=== PATIENT | male | born 1970 | race African-American/Black ===

== ENCOUNTER 2017-06-06 18:31 | Emergency (ER) | payer MEDICARE, OTHER ==
[2017-06-06 19:14] LABS: ADD MAN DIFF? NO
[2017-06-06 19:15] LABS: BASO # 0.1 x10^3/uL (0.0-0.2); BASO % 0 % (0-3); EOS # 0.1 x10^3/uL (0.0-0.7); EOS % 1 % (0-3); HEMATOCRIT 40.4 % (39.0-53.0); HEMOGLOBIN 13.4 g/dL (13.0-17.5); LYMPH # 1.2 x10^3/uL (1.0-4.8); LYMPH % 9 % (24-48); MEAN CORPUSCULAR HEMOGLOBIN 26 pg (25-35); MEAN CORPUSCULAR HGB CONC 33 g/dL (31-37); MEAN CORPUSCULAR VOLUME 77 fL (79-100); MONO # 1.7 x10^3/uL (0.0-1.1); MONO % 13 % (0-9); NEUT # 10.7 x10^3uL (1.8-7.7); NEUT % 78 % (31-73); PLATELET COUNT 213 x10^3/uL (140-400); RED BLOOD COUNT 5.24 x10^6/uL (4.30-5.70); RED CELL DISTRIBUTION WIDTH 16.2 % (11.5-14.5); WHITE BLOOD COUNT 13.8 x10^3/uL (4.0-11.0)
[2017-06-06 19:17] LABS: AGAP ISTAT 13 mmol/L (6-14); BUN ISTAT 9 mg/dL (8-26); CHLORIDE ISTAT 99 mmol/L (98-110); CREATININE ISTAT 0.9 mg/dL (0.5-1.4); GLUCOSE ISTAT 136 mg/dL (70-99); HEMATOCRIT ISTAT 42 % (37-52); HEMOGLOBIN ISTAT 14.3 g/dL (14-18); ION CA ISTAT 1.07 mmol/L (1.13-1.32); POTASSIUM ISTAT 3.8 mmol/L (3.5-5.0); SODIUM ISTAT 138 mmol/L (135-145); TOT CO2 ISTAT 30 mmol/L (23-32)
[2017-06-06] MEDS: ONDANSETRON PF 4 MG/2 ML VIAL. IV (19:23)
[2017-06-06] MEDS: AMPICILLIN/SULBACTAM 3 GM in IV NORMAL SALINE 100ML 100 ML IV (19:23)
[2017-06-06] MEDS: IV NORMAL SALINE 1000ML BAG 1,000 ML IV (19:23)
[2017-06-06] MEDS: fentaNYL PF VIAL 100 MCG/2 ML VIAL IV (19:24)
[2017-06-06] MEDS: DEXAMETHASONE SOD PHOS 20 MG/5 ML VIAL. IV (19:24)
[2017-06-06 19:27] LABS: ANION GAP 9 (6-14); BLOOD UREA NITROGEN 11 mg/dL (8-26); BUN/CREATININE RATIO 11 (6-20); CALCIUM 9.8 mg/dL (8.5-10.1); CARBON DIOXIDE 29 mmol/L (21-32); CHLORIDE 100 mmol/L (98-107); GFR 96.5; GLUCOSE 139 mg/dL (70-99); POTASSIUM 3.8 mmol/L (3.5-5.1); SODIUM 138 mmol/L (136-145)
[2017-06-06 19:29] LABS: ALBUMIN 3.4 g/dL (3.4-5.0); ALBUMIN/GLOBULIN RATIO 0.7 (1.0-1.7); ALK PHOS 82 U/L (46-116); ALT (SGPT) 28 U/L (16-63); AST (SGOT) 20 U/L (15-37); TOTAL BILIRUBIN 0.5 mg/dL (0.2-1.0)
== END 2017-06-06 21:32 | disposition short-term general hospital (02) ==
LOC: ER 18:31
DX: J36 Peritonsillar abscess (principal); E78.00 Pure hypercholesterolemia, unspecified; E11.39 Type 2 diabetes mellitus with other diabetic ophthalmic complication; H40.9 Unspecified glaucoma; F84.0 Autistic disorder; Z79.4 Long term (current) use of insulin
CPT/HCPCS: 36415; 80047; 80053; 85025; 96365; 96366; 96375; 99285-25; J0295; J1100; J2405; J3010; J7030